=== PATIENT | male | born 1980 | race Caucasian/White ===

== ENCOUNTER 2016-12-26 17:58 | Emergency (ER) | payer BC, OTHER ==
--- NOTE | 2016-12-26 18:24 | EDM.PDOC ---
ED HPI Trauma - General Chief Complaint: Upper Extremity Injury/Pain Stated Complaint: FINGER INJURY Time Seen by Provider: 12/26/16 18:01 Source: Reports: Patient History Limitations: Reports: No limitations - History of Present Illness INITIAL COMMENTS - FREE TEXT/NARRATIVE: PT STATES HE ACCIDENTALLY STRUCK RIGHT HAND WITH HEAVY METAL OBJECT AT WORK. DENIES ANY OTHER INJURY. UTD WITH TD. Symptom Onset Date: 12/26/16 Symptom Onset Time: 17:00 Occurred When: just prior to arrival Occurred Where: work Method of Injury: direct blow Severity: mild Pain/Injury Location: Reports: upper extremity, right Consciousness: Reports: no loss of consciousness Associated Symptoms: Reports: no other symptoms Allergies/ADRs: Allergies penicillin Allergy (Verified 05/05/15 21:52) Hives venom-honey bee [bee venom (honey bee)] Allergy (Verified 05/05/15 21:52) Anaphylactic Shock Home Medications: Ambulatory Orders EPINEPHrine [Epipen] 0.3 mg SQ ONETIME PRN 05/05/15 [Confirmed 05/05/15] Social & Family History - Tobacco Use Smoking Status *Q: Current Every Day Smoker Years of Tobacco use: 16 Used Tobacco, but Quit: Yes Month Tobacco Last Used: 08 Second Hand Smoke Exposure: Yes - Recreational Drug Use Recreational Drug Use: No Review of Systems - Review of Systems Review Of Systems: ROS reveals no pertinent complaints other than HPI. Constitutional: Reports: no symptoms Eyes: Reports: no symptoms Ears: Reports: no symptoms Nose: Reports: no symptoms Mouth/Throat: Reports: no symptoms Respiratory: Reports: No Symptoms Cardiovascular: Reports: no symptoms GI/Abdominal: Reports: No symptoms Genitourinary: Reports: no symptoms Musculoskeletal: Reports: hand pain Skin: Reports: wound (RIGHT HAND) Neurological: Reports: No Symptoms Psychiatric: Reports: no symptoms Trauma Exam - Physical Exam Exam: See Below Exam Limited By: No limitations General Appearance: Reports: alert, WD/WN, no apparent distress Head: Reports: atraumatic, normocephalic Throat/Mouth: Reports: Normal inspection, Normal oropharynx, No airway compromise Respiratory Exam: Reports: no respiratory distress Extremities: Reports: other (LACERATION TO RIGHT HAND DORSAL ASPECT AT 5TH PIJ) Neurologic: Reports: normal mood/affect, oriented x 3 Skin: Reports: Normal color, Warm/dry ED TRAUMA EXTREMITY PROCEDURES - Laceration/Wound Repair Right Dorsal Hand Lac/wound length in cm: 2 Appearance: superficial Distal NVT: neuro & vascular intact, no tendon injury Anesthetic type: local Local anesthesia - Lidocaine (Xylocaine): 2% plain Local anesthetic volume: 2cc Skin prep: providone-iodine (betadine) Closed with: sutures Suture size: 4-0 Suture type: nylon, interrupted Course - Orders/Labs/Meds Orders: Active Orders 24 hr Category Date Time Status Hand 2V Rt [CR] Stat Exams 12/26/16 18:13 Ordered - Radiology Interpretation Free Text/Narrative:: hand xray negative for fracture or fb - Re-Assessments/Exams Free Text/Narrative Re-Assessment/Exam: 12/26/16 18:43 PT AFEBRILE, NONTOXIC APPEARING, TOLERATED PROCEDURE WELL Departure - Departure Time of Disposition: 18:44 Disposition: Home, Self-Care 01 Condition: good Clinical Impression: Hand laceration Qualifiers: Encounter type: initial encounter Foreign body presence: without foreign body Laterality: right Qualified Code(s): S61.411A - Laceration without foreign body of right hand, initial encounter Instructions: Laceration Care, Adult, [id number], Sutured Wound Care, Easy-to -Read, Hand Contusion, [id number] - My Orders Last 24 Hours: My Active Orders 12/26/16 18:13 Hand 2V Rt [CR] Stat - Assessment/Plan Last 24 Hours: My Active Orders 12/26/16 18:13 Hand 2V Rt [CR] Stat Assessment:: LACERATION REPAIR TO RIGHT HAND Plan: SUTURE REMOVAL IN 10 DAYS
[2016-12-26] MEDS ORDERED: Lidocaine 2% 5 ML SDV ONE (18:29)
[2016-12-26] MEDS ORDERED: Lidocaine 2% 5 ML SDV INJECT ONE (18:34)
[2016-12-26] MEDS ORDERED: Bacitracin/Neomycin/Polymyxin B Oint 0.9 GM U/D Packet TOP ONE (18:40)
[2016-12-26 18:43] VITALS: BP 114/69
== END 2016-12-26 18:45 | disposition home or self-care (01) ==
LOC: KA.ED 17:58
DX: S61.411A Laceration without foreign body of right hand, initial encounter (principal); F17.200 Nicotine dependence, unspecified, uncomplicated; Z88.0 Allergy status to penicillin; Z91.030 Bee allergy status; W22.8XXA Striking against or struck by other objects, initial encounter; Y99.0 Civilian activity done for income or pay
CPT/HCPCS: 12001; 73120-RT; 99282; 99283